=== PATIENT | female | born 1945 | race Caucasian/White ===

== ENCOUNTER 2017-01-14 08:02 | Day surgery (SDC) | payer OTHER, MEDICARE ==
[~2017-01-14 08:02] MED LIST: CIPROFLOXACIN250 MG PO; CLONIDINE HCL0.1 MG PO; DILAUDID2 MG PO; EFFEXOR XR150 MG PO; GABAPENTIN300 MG PO; GLIMEPIRIDE1 MG PO; GLIMEPIRIDE2 MG PO; GLIMEPIRIDE4 MG PO; JANUMET 50-1,01 EACH PO; LANTUS 3 M100 UNITS1 SC; LIDODERM 5% P1 PATCH TD; LISINOPRIL-HCT1 EAC1 PO; NEURONTIN300 MG PO; NEURONTIN600 MG PO; OMEGA-3 ACID ETH1 GM PO; ONGLYZA5 MG PO; PANTOPRAZOLE SO40 MG PO; PRAVASTATIN SOD40 MG PO; PREDNISONE20 MG PO; PROTONIX40 MG PO; ROCALTROL0.25 MCG PO; ULTRAM50 MG PO; VENLAFAXINE HC150 M1 PO; ZOFRAN ODT4 MG PO; ZOFRAN4 MG PO
[2017-01-14 09:22] LABS: POINT-OF-CARE METER ID UU13113696
[2017-01-14] MEDS ORDERED: LANTUS 3 M100 UNITS1 SC (09:29)
[2017-01-14] MEDS ORDERED: ASPIRIN81 M2 PO (09:29)
== END 2017-01-14 15:15 | disposition home or self-care (01) ==
LOC: CATH 08:02
PROVIDERS: Internal Medicine Cardiovascular Disease
DX: I25.10 Atherosclerotic heart disease of native coronary artery without angina pectoris (principal); E11.9 Type 2 diabetes mellitus without complications; I10 Essential (primary) hypertension; E78.5 Hyperlipidemia, unspecified; Z79.4 Long term (current) use of insulin
CPT/HCPCS: 82948; C1769; C1887; J1644; J2250; J3010